=== PATIENT | male | born 1945 | race Caucasian/White ===

== ENCOUNTER → 2018-04-20 13:53 | Outpatient (CLI) | payer MEDICARE, BC | END | disposition home or self-care (01) | LOC: D.RAD 13:53 | PROVIDERS: ATTEND Urology | DX: N21.0 Calculus in bladder (principal) ==

== ENCOUNTER 2018-05-17 09:20 | Day surgery (SDC) | payer MEDICARE, BC ==
[2018-05-16 10:54] LABS: HEMATOCRIT 44.4 % (42.0-54.0); HEMOGLOBIN 15.1 g/dL (13.5-17.5); MCH 30.9 pg (26.0-34.0); MEAN PLATELET VOLUME 9.7 fL (7.4-10.4); RBC 4.88 10x6/uL (4.20-6.10); RDW 14.1 % (11.5-14.5); WBC 4.6 10x3/uL (4.8-10.8)
[~2018-05-17] VITALS: Ht 180.3 cm; Wt 99.8 kg
[~2018-05-17 09:20] MED LIST: FLOMAX0.4 MG PO; MAXZIDE 75/501 TAB PO; MECLIZINE HCL12.5 MG PO; SULFAMETHOXAZOL1 TA3 PO; VIBRAMYCIN 100100 MG PO
[2018-05-17 09:42] VITALS: BP 139/72; Ht 180.3 cm; Wt 99.8 kg
--- NOTE | 2018-05-17 17:45 | OP ---
PATIENT NAME: INDER GRAHAM MEDICAL RECORD: [id number] :45 LOCATION:.[facility] ADMISSION DATE: SURGEON: DANN MANCILLA MD DATE OF OPERATION: 05/17/2018 SURGEON: Dann Mancilla MD ANESTHESIA: TIVA by Millicent Angel CRNA PROCEDURES: Cystoscopy, transrectal ultrasound, and prostate biopsy. DIAGNOSES: Elevated PSA of 9.23 (03/02/2018), history of recurrent bladder stones, and urinary retention. IPSS score is 15 and quality of life score is 3, on tamsulosin. FINDINGS: On cystoscopy, bilateral lateral lobe obstruction of the prostate. Elevated bladder neck, but minimal median lobe. Heavily trabeculated bladder with diverticula. No bladder tumors and no stones are seen. On transrectal ultrasound, 72-gram prostate with large quantities of intraprostatic stones on the right side. SPECIMENS: Prostate biopsy cores. ESTIMATED BLOOD LOSS: None. CLINICAL HISTORY: This is a 73-year-old male who comes from [place], [place]. He was referred by Dr. Serrano for an elevated PSA of 9.23 on 03/02/2018. He has been started on tamsulosin, which does give him lightheadedness and reduced ejaculation. Earlier this year, he had removal of bladder stones by Dr. Thompson of [facility]. After that surgery, he went into urinary retention and the catheter is now out and he is voiding. Dr. Thompson recommended that a TURP be done. The patient also had bladder stones removed in 2008 at the [facility] in [place]. Even in 2008, they were recommending that he have a TURP. He refused also at that time. He does want to have a TURP and he wishes to have an alternative and therefore he is seeking a UroLift procedure. Because of the elevated PSA, we will have to perform a prostate biopsy to exclude prostate cancer first. If the biopsy shows no signs of cancer, then he is a candidate for UroLift procedure. He is not allergic to any medications. We gave him Ancef on-call to the OR. DESCRIPTION OF PROCEDURE: The patient was given IV sedation. He was then placed into the dorsal lithotomy position and prepped and draped. Cystoscopy was performed using a 17-Sinhala cystoscope in order to determine the prostatic anatomy. No penile or urethral strictures were seen. Large obstructive lateral lobes of the prostate were seen. The other findings are as outlined above. The bladder was then emptied through the cystoscope sheath and the scope was removed. The transrectal ultrasound probe was introduced and we had a lot of internal shadowing of the prostate from vast quantities of intraprostatic stones, especially on the right side. Prostate size was measured at 72 grams. We then performed sextant biopsies with at least 3 cores from each sextant. Once all the specimens were obtained, the procedure was terminated. I will see the patient in follow up next week to review the pathology with him. 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
== END 2018-05-17 14:10 | disposition home or self-care (01) ==
LOC: D.OPS 09:20 → D.PAN 10:00 → D.OPS 10:00 → D.PAN 10:50 → D.OPS 11:40
PROVIDERS: Anesthesiology; ATTEND Urology
DX: C61 Malignant neoplasm of prostate (principal); N40.1 Benign prostatic hyperplasia with lower urinary tract symptoms; R33.8 Other retention of urine; N32.89 Other specified disorders of bladder; N32.3 Diverticulum of bladder; Z01.812 Encounter for preprocedural laboratory examination

== ENCOUNTER 2018-06-21 05:30 | Day surgery (SDC) | payer MEDICARE, BC ==
[2018-06-20 11:44] LABS: BASOPHILS 0.5 % (0-2); EOSINOPHILS 3.5 % (0-7); HEMATOCRIT 45.6 % (42.0-54.0); HEMOGLOBIN 15.1 g/dL (13.5-17.5); LYMPHOCYTES 29.3 % (15-50); MCH 30.3 pg (26.0-34.0); MCHC 33.1 g/dL (31.0-37.0); MCV 91.6 fL (80.0-100.0); MEAN PLATELET VOLUME 9.8 fL (7.4-10.4); MONOCYTES 9.2 % (2-11); NEUTROPHILS 57.5 % (40-80); PLATELET COUNT 158 10x3/uL (130-400); RBC 4.98 10x6/uL (4.20-6.10); RDW 14.2 % (11.5-14.5); WBC 5.7 10x3/uL (4.8-10.8)
[2018-06-20 11:50] LABS: APTT 28.3 SECONDS (22.8-39.4); INR 1.15 (0.85-1.17); PROTIME 14.2 SECONDS (11.6-15.0)
[2018-06-20 11:55] LABS: ANION GAP 10.8 mmol/L (8-16); CALCIUM 8.9 mg/dL (8.5-10.1); CARBON DIOXIDE 28.1 mmol/L (21.0-32.0); CREATININE - SERUM 1.2 mg/dL (0.6-1.3); POTASSIUM - SERUM 3.9 mmol/L (3.5-5.1)
[~2018-06-21] VITALS: Ht 180.3 cm; Wt 99.3 kg
[2018-06-21 06:28] VITALS: BP 143/75; Ht 180.3 cm; Wt 99.3 kg
--- NOTE | 2018-06-21 09:02 | NUR ---
[address] MANCILLA. PROCEDURE WELL POST OP EXPECTATIONS DISCUSSED WITH PT. Zabrina MARIE R.N.
--- NOTE | 2018-06-21 11:43 | OP ---
PATIENT NAME: INDER GRAHAM MEDICAL RECORD: [id number] :45 LOCATION:D[facility] ADMISSION DATE: SURGEON: DANN MANCILLA MD DATE OF OPERATION: 06/21/2018 SURGEON: Dann Mancilla MD ANESTHESIA: TIVA by Tez Cueva CRNA DIAGNOSIS: Prostate cancer with bladder outlet obstruction. PSA is 9.23. Transrectal ultrasound shows 72 gram prostate. Prostate cancer, clinical stage T2A with [place] score 3+3 at the right apex where there is a palpable nodule. IPSS score is 15 quality of life score is 3 on tamsulosin. PROCEDURE: UroLift times 5. FINDINGS: Obstructive bilateral lateral lobes with a small median lobe. BLOOD LOSS: Minimal. CLINICAL HISTORY: This is a 73-year-old male, who has an elevated PSA of 9.23 on 03/02/2018. He has a positive family history of prostate cancer with his father having had prostate cancer. Previously, he had a 2.8 cm bladder stone and an enlarged prostate, which was seen on the CT scan of the abdomen and pelvis. He had the bladder stone removed by Dr. Thompson. Transrectal ultrasound showed a gram prostate. Cystoscopy shows bilateral lateral lobe obstruction. He had a prostate biopsy, which showed prostate cancer with [place] score 3+3 at the right apex. Due to the low-grade and low stage, he has elected to have observation for his prostate cancer. He does have bladder outlet obstruction symptoms and therefore, he comes today to have the UroLift procedure to relieve the obstruction. He is not allergic to any medications. He had Ancef engineering inspection assistant to the OR. DESCRIPTION OF PROCEDURE: The patient was given IV sedation. He was then placed in the dorsal lithotomy position and prepped and draped. The UroLift scope was introduced. There are no urethral strictures. The prostatic urethra is as outlined above. We first placed the 2 bladder neck area units at the lateral anterior sulcus of the lateral lobe of the prostate. These were placed about 1.5 cm distal to the bladder neck. Then, we placed 2 units of the verumontanum at the anterior lateral sulcus. Again, 1 unit was placed on each side. Looking with the obturator, there was a bit of material from the mid prostate causing an obstruction. I therefore placed one final unit in the right mid prostate at the mid prostatic level. This created a nice open channel. The bladder was left partly full, so that we can perform a voiding trial. I will see the patient in followup in 1 months' time. TRANSINT:[id number] Voice Confirmation ID: [id number] DOCUMENT ID: [id number] OPERATIVE REPORT [id number] INDER GRAHAM ROBERT S MD at 1143 CC: [id number] DICTATION DATE: 06/21/18 0857 FAMILY SUPPORT WORKER: 06/21/18 1131 [address] [place] [id number] [place] [id number]
--- NOTE | 2018-06-21 15:06 | NUR ---
1000 VOIDED ANOTHER TIME POST PROCEDURE WITHOUT DIFFICULTY. IV DC'ED WITH CATH INTACT. DRESSING. Zabrina MARIE R.N. 1020 DRESSED, AWAKE & ALERT. GIVEN DISCHARGE INFORMATION INCLUDING: MED REC, RTC APPT., [facility] OP D/C INSTRUCTIONS, & UROLIFT D/C INSTRUCTIONS. PT VOICED UNDERSTANDING. TO PRIVATE CAR PER WHEELCHAIR BY THIS NURSE. HOME WITH FELICITA GRAHAM. Zabrina MARIE R.N.
== END 2018-06-21 10:20 | disposition home or self-care (01) ==
LOC: D.OPS 05:30 → D.PAN 08:05 → D.OPS 08:05 → D.PAN 08:15 → D.OPS 08:15
PROVIDERS: Anesthesiology; ATTEND Urology
DX: C61 Malignant neoplasm of prostate (principal); N32.0 Bladder-neck obstruction; Z01.812 Encounter for preprocedural laboratory examination

== ENCOUNTER → 2018-08-22 08:47 | Outpatient (CLI) | payer MEDICARE, BC ==
[2018-06-21 06:28] VITALS: BMI 30.6
== END | disposition home or self-care (01) ==
LOC: D.LABREF 08:47
PROVIDERS: ATTEND Urology
DX: C61 Malignant neoplasm of prostate (principal)